=== PATIENT | female | born 1960 | race Caucasian/White ===

== ENCOUNTER 2025-01-29 11:04 | Day surgery (SDC) | payer MEDICARE, BC ==
[~2025-01-29 11:04] MED LIST: Lactated Ringers 1,000 ML IV SCH
[2025-01-29] MEDS ORDERED: fentaNYL 50 MCG/ML SDV ONE ×2 (12:03)
[2025-01-29] MEDS ORDERED: Propofol 200 MG/20 ML SDV ONE (12:03)
[2025-01-29] MEDS ORDERED: Ondansetron 4 MG/2 ML SDV ONE (12:03)
[2025-01-29] MEDS ORDERED: Ketamine 200 MG/20 ML MDV ONE (12:03)
== END 2025-01-29 13:15 | disposition home or self-care (01) ==
LOC: CC.SDS 11:04
PROVIDERS: ATTEND Family Medicine
DX: Z12.11 Encounter for screening for malignant neoplasm of colon (principal); K57.30 Diverticulosis of large intestine without perforation or abscess without bleeding; D12.3 Benign neoplasm of transverse colon; I10 Essential (primary) hypertension; E78.5 Hyperlipidemia, unspecified; Z86.0100 Personal history of colon polyps, unspecified; Z79.899 Other long term (current) drug therapy
CPT/HCPCS: 00811; 45380; 88305; J2405; J2704; J3010; J3490